=== PATIENT | female | born 1975 | race Caucasian/White ===

== ENCOUNTER 2023-08-05 10:04 | Outpatient (AMB) | payer BC, SELFPAY ==
--- NOTE | 2023-08-05 10:15 | AM.OFFWIN_ITS ---
Intake Vital Signs 08/05/23 10:21 Height 5 ft 4 in Weight 245 lb BMI 42.0 BP 126/70 Blood Pressure Location Lt brachial Position Sitting Pulse 82 Pulse Source Pulse Oximeter Temp 97.2 F Temp Source Temporal Artery Scan Pulse Oximetry (%) 96 Oxygen Delivery Method Room Air Intake Visit Reasons: [employer] ?Sinus Infection [phone] Intake Note: pt is here today for sinus infection started 2 weeks ago Patient Tobacco Use Status: Never used Tobacco Allergies No Known Allergies [No Known Allergies*] Allergy (Verified 08/05/23 10:16) Do you need a note to return to daycare/school/sports/work: No HPI [employer] ?Sinus Infection [phone] HPI Details This is a 47-year-old female patient who presents today with a 2+ week history of sinus pressure, congestion, headache, feeling of being hot and cold. Denies any fever. Denies GI symptoms. Denies exposure to sick contacts. Does have a productive cough with yellow/green sputum. Denies shortness of breath. Has been taking Tylenol, [place] cold/flu, using humidifier at home without benefit. Feels worsening facial pressure particularly around eyes and forehead. PFS Social History Patient Tobacco Use Status: Never used Tobacco Review of Systems Const All systems reviewed & are unremarkable except as noted in HPI and below Physical Exam Vital Signs: Last Vital Signs Temp 97.2 F 08/05/23 10:21 Pulse 82 08/05/23 10:21 BP 126/70 08/05/23 10:21 Pulse Ox 96 08/05/23 10:21 Oxygen Delivery Method Room Air 08/05/23 10:21 BMI result Body Mass Index 42.0 Const General: cooperative and no acute distress HEENT Head: Yes normal to inspection Ears: hearing grossly normal bilaterally General nose exam: Normal external nose present and Nasal discharge present mucoid Face and sinus: Yes sinus tenderness (Frontal and maxillary) Mouth: Normal oral and palatal mucosa present Throat: Yes posterior oropharynx normal Neck Neck: Yes no lymphadenopathy Resp Effort & Inspection: normal respiratory effort and Actively coughing Quality: dry Auscultation: clear to auscultation bilaterally Cardio Jugular venous distension: no JVD Palpation: normal PMI Rate: regular rate Rhythm: regular rhythm Skin General skin exam: no rashes or lesions noted Extrem General: Yes capillary refill normal and Yes no clubbing, cyanosis or edema Psych Appearance: grossly normal Mental Status: mental status grossly normal Speech and movement: Normal speech and movement present Assessment & Plan Assessment & Plan (1) Acute sinusitis: Code(s): J01.90 - Acute sinusitis, unspecified Qualifiers: Sinusitis location: maxillary Recurrence: non-recurrent Qualified Code(s): J01.00 - Acute maxillary sinusitis, unspecified Plan: Patient has done well previously for similar illnesses on Augmentin without side effects. We will start course of this. Reviewed indications, use, possible side effects. Recommended ongoing treatment of symptoms with conservative measures, Tylenol, OTC cold/flu medication, use of humidifier, adequate rest, hydration, healthy diet. If she does not improve with these measures, or if new symptoms develop, she can return to the clinic for further evaluation. Declines viral testing. Patient verbalizes understanding and agrees to plan. Medications: New amoxicillin-pot clavulanate 875-125 mg 1 tab PO BID 14 tabs 0RF 7 days J01.00 - Acute maxillary sinusitis, unspecified Coding Level of Care Code Est Pt Level 3 (64676) Diagnoses Acute non-recurrent maxillary sinusitis J01.00 Sinusitis location: maxillary Recurrence: non-recurrent
[2023-08-05 10:21] VITALS: BP 126/70; PULSE 82; TEMP 36.2; O2SAT 96; BMI 42.0
== END 2023-08-05 10:50 | disposition home or self-care (01) ==
PROVIDERS: PCP Internal Medicine; Visit Provider Nurse Practitioner Family
DX: J01.00 Acute maxillary sinusitis, unspecified (principal)
CPT/HCPCS: 99213